=== PATIENT | female | born 1975 | race Caucasian/White ===

== ENCOUNTER → 2020-02-01 15:25 | Outpatient (CLI) | payer BC, SELFPAY ==
[2020-02-03 14:12] LABS: Covid-19 Nasal PCR Sendout Lex Not Detected
== END ==
PROVIDERS: PCP Nurse Practitioner; Visit Provider Nurse Practitioner
DX: Z03.818 Encounter for observation for suspected exposure to other biological agents ruled out (principal)
CPT/HCPCS: U0004

== ENCOUNTER 2020-07-16 08:07 | Outpatient (CLI) | payer OTHER, SELFPAY ==
[2020-07-16] VITALS (12 sets, daily range): BP systolic 114–138; BP diastolic 75–97; PULSE 73–86; RESP 16–18; TEMP 36.7–36.8; O2SAT 96–98
--- NOTE | 2020-07-16 10:04 | PC.NURSE ---
pt infusion complete at this time. Will continue to monitor. pt states no needs at this time
== END 2020-07-16 11:10 | disposition home or self-care (01) ==
LOC: INF 08:10
PROVIDERS: PCP Family Medicine; Visit Provider Family Medicine
DX: U07.1 COVID-19 (principal)
CPT/HCPCS: 96365